=== PATIENT | female | born 1980 | race Caucasian/White ===

== ENCOUNTER 2018-06-29 14:20 | Day surgery (SDC) | payer MEDICAID, SELFPAY ==
[2018-06-29 14:40] VITALS: BP 112/72; PULSE 91; RESP 18; TEMP 37.1; O2SAT 100; BMI 22.3
--- NOTE | 2018-06-29 16:42 | PCM.OPRPT ---
Problem List (1) Hematoma of pinna, left Status: Acute Qualifiers: Encounter type: subsequent encounter Qualified Code(s): S00.432D - Contusion of left ear, subsequent encounter Report of Operation Date of Procedure: 06/29/18 Pre-Operative Diagnosis: Hematoma of left pinna with occlusion of external auditory canal Post-Operative Diagnosis: same Surgery/Procedure Performed:: Dranage of auricular hematoma, complex Description of Surgical Findings:: Bernie is a 38-year-old female who presents after traumatic injury to the left pinna. This is developed a large hematoma that had been partially evacuated in the emergency department however the continue to be significant swelling and occlusion of the external artery canal. Palpation showed this to continue to be fluctuant consistent with entrapped fluid and the above procedure was offered in hopes of zoroastrian of patency of the external auditory canal for the promotion of hearing and reduction of permanent thickening of the pinna. The risks, alternatives, potential complications, and benefits were discussed at length and any questions answered to the patient and/or caregiver's satisfaction. Witnessed informed consent was obtained in the office, and the patient and/or caregiver was agreeable to proceed. Procedure went as follows: The patient was identified in preoperative holding brought to the operating room she is placed under general anesthesia intubated. When appropriate anesthesia obtained, the left pinna was prepped and draped in usual sterile fashion. Using a 15 blade scalpel, a 4 cm incision was made in the antihelical fold. This exposed a large hematoma below the perichondrium. This was fibrotic and partially organized. Using a blunt forceps and a Kitner the fibrotic hematoma and granulation tissue was then debrided and removed widely. This allowed for reapproximation of the skin over the contours of the auricular cartilage and zoroastrian of patency of the external auditory canal. A quilting stitch of 5-0 Monocryl was then placed to reapproximate the skin and close the space. The incision was then closed with interrupted 5-0 Monocryl sutures. An Ambrus otowick was placed into the external auditory canal to prevent reaccumulation of hematoma in this space. Bacitracin ointment was then applied and the patient returned to anesthesia where she was revived and extubated without comp occasion having tolerated the procedure well. Type of Anesthesia:: General Anesthesiologist: Kancherla,Abisai Special Medications: none Specimen's removed: none Drains: none Estimated Blood Loss (mL): 15 mL Fluids Replaced: 700 mL Grafts/Implants Used: none - Complications none - Admit VTE Documentation VTE Present on Admission: No VTE Mechan Device Prophylaxis: SCD's VTE Pharm Prophylaxis ordered?: No
[2018-06-29] MEDS: Mupirocin Ointment 22gm Tube 1 APPLIC (16:45)
--- NOTE | 2018-06-29 16:52 | DCINST_ITS ---
- Discharge Diagnoses Current Active Problems: Current Active and Chronic Problems Hematoma of pinna, left (Acute) You will use the following diet at home:: No restrictions Discharge Activity: Return to Normal Activity Call your doctor if your incision/area has: Increased Pain/ Swelling, Foul Smelling Discharge Call your doctor if you observe: Fever of 101 or Higher, Uncontrolled pain Cleanse incision/area with: Do not get Incision Wet, Keep Dressing Clean & Dry Allergies/Adverse Reactions: Allergies No Known Allergies Allergy (Verified 06/29/18 10:08) Medications to take at Discharge NK 06/29/18 Primary Care Physician: Elisa Guerrero DO [Primary Care Provider] - Test Results: Test results from this visit will be discussed in further detail at your follow- up appointment, if applicable. Please Follow Up With: Catracho Winkler MD When: 2 weeks
[2018-06-29 16:57] VITALS: BP 112/72; BP 115/70; PULSE 89; RESP 18; TEMP 36.3; O2SAT 100
[2018-06-29 17:00] VITALS: BP 112/72; BP 113/87; PULSE 75; RESP 18; O2SAT 98
[2018-06-29 17:15] VITALS: BP 109/72; BP 112/72; PULSE 80; RESP 18; O2SAT 97
[2018-06-29 17:21] VITALS: BP 112/72; BP 114/83; PULSE 69; RESP 18; TEMP 36.6; O2SAT 98
[2018-06-29] MEDS: Acetaminophen 325 MG Tablet 650 MG PO (17:39)
[2018-06-29 18:05] VITALS: BP 112/72; BP 98/68; PULSE 74; RESP 16; TEMP 36.7; O2SAT 100
== END 2018-06-29 18:23 | disposition home or self-care (01) ==
LOC: SDC 14:24 → AC 14:24
PROVIDERS: Family Provider Internal Medicine; PCP Internal Medicine; Referring Provider Otolaryngology; Visit Provider Otolaryngology
PROC: (CPT 69005; principal; 2018-06-29 15:45)
DX: S00.432A Contusion of left ear, initial encounter (principal); W50.0XXA Accidental hit or strike by another person, initial encounter; Y93.9 Activity, unspecified; Y92.9 Unspecified place or not applicable; Y99.9 Unspecified external cause status; F17.210 Nicotine dependence, cigarettes, uncomplicated; Z86.19 Personal history of other infectious and parasitic diseases
CPT/HCPCS: 69005; J7120; A4216; J2405